=== PATIENT | male | born 1995 | race Caucasian/White ===

== ENCOUNTER 2017-02-16 18:16 | Emergency (ER) | payer MEDICAID, OTHER ==
[~2017-02-16] VITALS: Ht 177.8 cm; Wt 79.0 kg
[2017-02-16 18:25] VITALS: BP 130/78; PULSE 64; RESP 14; O2SAT 100
--- NOTE | 2017-02-16 19:26 | ED.REPORT ---
HPI-Neurologic Deficit Date of Service Feb 16, 2017 ED Provider: Tony Byers MD A 21 year old male with no pertinent history presents to the ED complaining of facial numbness. The pt began experiencing facial numbness at 01:00 last night while at work. The numbness was present on both sides of his face, more predominantly on the left side, and the dorsal aspect of his left forearm. He performed a self-evaluation and did not notice any facial asymmetry. The pt returned home and went to sleep. His symptoms had improved significantly by the time he woke, but were still present to some extent. He denies exposure to chemicals or recent anxiety, though his grandmother did pass away early this month which caused some stress. Nursing Notes Stated Complaint: FACIAL NUMBING Chief Complaint: Neuro Symptoms/ Deficits Nursing Notes Reviewed: Yes Allergies: Coded Allergies: No Known Allergies (Verified , 04/19/09) General Time Seen by Provider: 19:21 Chief Complaint Other (facial numbness) Hx Obtained From: Patient Arrived By: Walk-in Sudden in Onset?: Yes Onset Occurred: 1 day ago Symptom Duration: Since onset Recent Healthcare: No recent doctor visit, No recent hospitalization Similar Sx Previous: No Past Medical History Past Medical History none reported Past Surgical History Reports: Cholecystectomy Smoking History Never Smoker Social History Alcohol Use: "Social" Drug Use: Denies drug use Other Social History: Good social support Ambulatory Status Independent Review of Systems Respiratory: Denies: Non-productive cough, Shortness of breath Cardiovascular: Denies: Chest pain GI: Denies: Abdominal pain, Vomiting Musculoskeletal: Denies: Neck pain Neurologic: Reports: Numbness (face, left arm) Complete sys rev & neg: except as marked. Physical Exam Initial Vital Signs Vital Signs (First) Date Time Temp Pulse Resp B/P Pulse Ox O2 Delivery O2 Flow Rate FiO2 02/16/17 18:25 36.9 64 14 130/78 100 Room Air Initial VS: Reviewed, Vital signs normal General/Constitutional: Awake, Alert Head / Eyes: Atraumatic, Normocephalic, PERRL, EOMI Respiratory / Chest: Atraumatic, Breath sounds NL, Breath sounds = bilat, No respiratory distress Cardiovascular: Heart rate NL, Regular rhythm, Heart sounds NL Neurologic: Oriented X3, Speech NL, No motor deficits, No sensory deficits, CN II - XII intact ENT: Atraumatic, Airway patent, Mucous membranes moist Neck: Atraumatic, Supple, Full range of motion Abdomen: Atraumatic, Soft, Non-tender Back: Atraumatic, Full range of motion Upper Extremity / MS: Atraumatic, Full range of motion Lower Extremity / Pelvis / MS: Atraumatic, Full range of motion Skin: Atraumatic, Color NL, No rash, Warm, Dry Psychiatric: Affect NL, Mood NL Re-Eval/Medical Decision Med Decision/Clinical Course 21-year-old male with transient circumoral numbness and tingling, worse on the right than on the left. He has had some increased stress. I think CVA is very unlikely in this patient, and this does not appear to be Manzo's palsy. He has no findings at the present time. He is being discharged home to follow-up with his regular provider. Source of Hx: Old records Re-Evaluation/Progress : Time of Eval: 20:50 Patient Status: Condition improved Re-Evaluation/Progress Note: Pt rechecked, who is feeling well. He is informed of his diagnosis and the plan for discharge. The pt understands and agrees with the plan. All questions are addressed at this time. Counseled Regarding: Diagnosis, Need for follow-up, When/why to return to ED Discharge & Departure Impression: Primary Impression: Facial numbness Disposition: Home Discharge Condition All VS Reviewed: Yes Condition: Stable Patient Instructions: Stress (ED) Additional Instructions: Your symptoms are not typical of serious neurologic disease. I do not feel that advanced imaging is necessary at this point. Follow up with ERIKA Bonilla to discuss these symptoms with her. Return to the emergency room if you have significant change or worsening. Referrals: Jada Bonilla (PCP) [place] Attestation Portions of this note were transcribed by Yolis Mitchell. I, Dr. Byers personally performed the history, physical exam and medical decision-making; I reviewed and confirmed the accuracy of the information in the transcribed note. Signed by: Briana Lanier, 02/16/17 and 2050. copies to: Jada Bonilla Howard L MD Feb 16, 2017 19:26 YOLIS MITCHELL Feb 16, 2017 19:39
[2017-02-16 21:24] VITALS: BP 124/77; PULSE 66; RESP 15; O2SAT 100
== END 2017-02-16 21:28 | disposition home or self-care (01) ==
LOC: SED 18:16
DX: R20.2 Paresthesia of skin (principal)